=== PATIENT | male | born 1950 | race African-American/Black ===

== ENCOUNTER 2018-03-05 17:00 | Emergency (ER) | payer OTHER ==
[2018-03-05 17:36] VITALS: BP 166/77
--- NOTE | 2018-03-05 19:00 | UC ---
Complaint Male HPI - HPI Summary HPI Summary: 67-year-old male comes in with a chief complaint of burning with urination body aches and chills. Started yesterday. It miranda when he urinates. No runny nose no sore throat no cough or chest congestion. No abdominal pain or flank pain. He's had the chills but he has not measured his temperature. He drank a lot of water yesterday and that did decrease the dysuria. Denies concern of STI. - History of Current Complaint Chief Complaint: UCGU Stated Complaint: BURNING URINATION, AND ACHES Time Seen by Provider: 03/05/18 18:43 Pain Intensity: 8 - Allergies/Home Medications Allergies/Adverse Reactions: Allergies Allergy/AdvReac Type Severity Reaction Status Date / Time lactose Allergy GI Upset Verified 03/05/18 17:36 PMH/Surg Hx/FS Hx/Imm Hx Previously Healthy: Yes - Surgical History Surgical History: Yes Surgery Procedure, Year, and Place: Sinus surgery - deviated septum. Varicose vein laser surgery,. bilateral subdural hematoma evacuation x 3 2013,. bx of thyroid - Family History Known Family History: Positive: Diabetes - paternal side Negative: Cardiac Disease - Social History Alcohol Use: Rare Alcohol Amount: Not since having headache Substance Use Type: None Smoking Status (MU): Former Smoker Type: Cigarettes Have You Smoked in the Last Year: No When Did the Patient Quit Smoking/Using Tobacco: 1983 - Immunization History Most Recent Influenza Vaccination: None Most Recent Tetanus Shot: never Most Recent Pneumonia Vaccination: never Review of Systems Constitutional: Chills Skin: Negative Eyes: Negative ENT: Negative Respiratory: Negative Cardiovascular: Negative Gastrointestinal: Negative Genitourinary: Dysuria Motor: Negative Neurovascular: Negative Musculoskeletal: Negative Neurological: Negative Psychological: Negative Is Patient Immunocompromised?: No All Other Systems Reviewed And Are Negative: Yes Physical Exam Triage Information Reviewed: Yes Appearance: Well-Appearing, No Pain Distress, Well-Nourished Vital Signs: Initial Vital Signs Temp 98.4 F 03/05/18 17:30 Pulse 97 03/05/18 17:30 Resp 18 03/05/18 17:30 BP 166/77 03/05/18 17:30 Pulse Ox 99 03/05/18 17:30 Vital Signs Reviewed: Yes Eye Exam: Normal Eyes: Positive: Conjunctiva Clear ENT Exam: Normal ENT: Positive: Pharynx normal. Negative: Nasal congestion, Nasal drainage Neck exam: Normal Neck: Positive: Supple Respiratory Exam: Normal Respiratory: Positive: Lungs clear, Normal breath sounds, No respiratory distress Cardiovascular: Positive: RRR Abdominal Exam: Normal Abdomen Description: Positive: Nontender, Soft. Negative: CVA Tenderness (R), CVA Tenderness (L) Bowel Sounds: Positive: Present Musculoskeletal Exam: Normal Musculoskeletal: Positive: Strength Intact, ROM Intact Neurological Exam: Normal Neurological: Positive: Alert, Muscle Tone Normal Psychological Exam: Normal Psychological: Positive: Age Appropriate Behavior Skin Exam: Normal Complaint Male Course/Dx - Course Course Of Treatment: I discussed the results with the patient. Ketones in the urine. Fingerstick blood sugar was 133. No signs of diabetic cause of the dysuria at this time. With the patient having body aches and some chills this potential for prostatitis. We'll treat with Bactrim for 2 weeks and have him follow-up with his primary care doctor. The urine has been cultured. If he gets worse he should get rechecked again sooner. - Differential Dx/Diagnosis Provider Diagnoses: DYSURIA Discharge - Sign-Out/Discharge Documenting (check all that apply): Patient Departure All imaging exams completed and their final reports reviewed: No Studies - Discharge Plan Condition: Stable Disposition: HOME Prescriptions: Sulfamethox/Trimethoprim DS* [Bactrim DS 800/160 TAB*] 1 tab PO BID #28 tab Patient Education Materials: Dysuria (ED) Referrals: Juan José Rojas MD [Primary Care Provider] - Additional Instructions: FOLLOW UP WITH YOUR DOCTOR. GET RECHECKED FOR ANY WORSENING OF YOUR CONDITION OR QUESTIONS OR CONCERNS. - Billing Disposition and Condition Condition: STABLE Disposition: Home
== END 2018-03-05 19:40 | disposition home or self-care (01) ==
LOC: UCEAST 17:00
DX: R30.0 Dysuria (principal); Z91.011 Allergy to milk products; Z87.891 Personal history of nicotine dependence
CPT/HCPCS: 81003; 87077; 87086; 87186; 99212; G0463